=== PATIENT | male | born 1990 | race Caucasian/White ===

== ENCOUNTER 2019-08-20 06:28 | Emergency (ER) | payer SELFPAY ==
[~2019-08-20] VITALS: Ht 170.2 cm; Wt 87.5 kg
[2019-08-20 06:59] VITALS: BP_SYST 139
--- NOTE | 2019-08-20 07:00 | NUR ---
Placed in room 3 . Placed on monitoring specialist, blood pressure machine and pulse oximeter. To gown for exam. Side rails up. Assumed care.
--- NOTE | 2019-08-20 07:15 | NUR ---
Patient arrived via POV, AAOx4, and ambulatory with hunched gait. Patient accompanied by . Patient states when waking up approximately 0600, he had sudden onset of RLQ pain and intense nausea. No episodes of vomiting, dry heaving. Patient notes no changes in bowel habits, recent illness, chest pain. Patient states pain is sharp and constant to RLQ, worse with movement, less with placing hand at site of pain, and applying pressure. Patient states he has not had his appendix removed, or gallbladder removed. Patient notes no recent injury or muscle pulling. No history of kidney stones. Patient states episode of testicular pulling sensation. Will continue to follow up and monitor.
--- NOTE | 2019-08-20 07:40 | NUR ---
ER at bedside examining patient.
[2019-08-20] MEDS ORDERED: KETOROLAC TROMETHAMINE 30 MG VIAL IVP ONE (07:45)
[2019-08-20] MEDS ORDERED: NACL 0.9% 1,000 ML IV ONE (07:45)
[2019-08-20] MEDS ORDERED: MORPHINE 4 MG/ML INJ. SYRINGE IVP ONE (07:45)
[2019-08-20] MEDS ORDERED: ONDANSETRON HCL 4 MG/2 ML VIAL IVP ONE (07:45)
[2019-08-20 07:56] LABS: BASOPHILS % (AUTO) 0.5 % (0.0-2.0); EOSINOPHILS # (AUTO) 0.5 K/uL (0.0-0.4); EOSINOPHILS % (AUTO) 4.5 % (0.0-4.0); HEMATOCRIT 45.5 % (36-54); HEMOGLOBIN 15.7 g/dL (14.0-18.0); LYMPHOCYTES # (AUTO) 4.1 K/uL (1.0-5.5); LYMPHOCYTES % (AUTO) 39.7 % (20.5-51.5); MEAN CORPUSCULAR HEMOGLOBIN 31 pg (27-31); MEAN CORPUSCULAR HGB CONC 35 % (32-36); MEAN CORPUSCULAR VOLUME 89 fL (79.0-98.0); MONOCYTES # (AUTO) 0.6 K/uL (0.0-1.0); MONOCYTES % (AUTO) 5.9 % (1.7-9.3); NEUTROPHILS # (AUTO) 5.1 K/uL (1.8-7.7); NEUTROPHILS % (AUTO) 49.4 % (40.0-70.0); PLATELET COUNT (AUTO) 281 K/uL (130-430); RED BLOOD CELL COUNT(AUTO) 5.14 MIL/uL (4.2-6.2); RED CELL DISTRIBUTION WIDTH 13.1 % (9.0-15.0); WHITE BLOOD COUNT (AUTO) 10.2 K/uL (4.8-10.8)
[2019-08-20 08:01] LABS: CALCIUM 8.8 mg/dL (8.4-11.0); CREATININE 1.23 mg/dL (0.55-1.30); POTASSIUM 3.4 mmol/L (3.5-5.1)
[2019-08-20 08:05] LABS: ALBUMIN 4.2 g/dL (3.4-4.8); TOTAL BILIRUBIN 1.1 mg/dL (0.0-1.0)
--- NOTE | 2019-08-20 08:30 | NUR ---
Patient returned from CT scan via wheelchair. Patient states pain was almost completely gone prior to CT, but when he lifted his arms. MD made aware of returning pain.
--- NOTE | 2019-08-20 10:15 | NUR ---
Patient resting comfortably, aware we are waiting for results and MD to follow up regarding results.
[2019-08-20 11:20] VITALS: BP_SYST 112
--- NOTE | 2019-08-20 11:20 | NUR ---
Patient given written and verbal discharge instructions and verbalizes understanding. ER MD discussed with patient the results and treatment provided. Patient in stable condition. ID arm band removed. IV catheter removed intact and dressing applied, no active bleeding. Rx of Motrin, [place] 5-325, Zofran given. Patient educated on pain management and to follow up with PMD. Pain Scale 5/10. Opportunity for questions provided and answered. Medication side effect fact sheet provided.
== END 2019-08-20 11:20 | disposition home or self-care (01) ==
LOC: SED 06:28
DX: N13.2 Hydronephrosis with renal and ureteral calculous obstruction (principal); R11.2 Nausea with vomiting, unspecified; Z91.013 Allergy to seafood
CPT/HCPCS: 36415; 74176; 80053; 81002; 83690; 85025; 96361; 96374; 96375; 99284; J1885; J2270; J2405; J7030

== ENCOUNTER 2021-10-26 08:35 | Emergency (ER) | payer OTHER, SELFPAY ==
[~2021-10-26] VITALS: Ht 170.2 cm; Wt 99.8 kg
[2021-10-26 08:40] VITALS: BP_SYST 108
--- NOTE | 2021-10-26 08:40 | NUR ---
PT TRAIGED AND PLACED IN WAITING ROOM FOR AVAILABLE BED
--- NOTE | 2021-10-26 08:42 | NUR ---
PT BIB FROM HOME, C/O LEFT SIDED TESTICULAR PAIN STARTING AROUND 0630 AFTER HAVING A BM. PT REPORTS THEN FEELING A STRONG URGE TO VOID BUT WAS UNABLE TO. REPORTS HX OF KIDNEY STONES. PT IS AMBULATORY, AAOX4, VSS
--- NOTE | 2021-10-26 08:55 | NUR ---
ER DR. ARRIOLA EXAMINING PT
[2021-10-26] MEDS ORDERED: KETOROLAC TROMETHAMINE 60 MG/2 ML VIAL IM ONE (09:00)
[2021-10-26] MEDS ORDERED: HYDROmorphone 1 MG/ML INJ. CARTRIDGE IVP ONE ×2 (09:00→10:00)
[2021-10-26] MEDS ORDERED: NACL 0.9% 1,000 ML IV ONE ×2 (09:00→10:15)
--- NOTE | 2021-10-26 09:08 | NUR ---
# 20 gauge angiocath placed to RAC. Use of asceptic technique. Opsite placed over site. Blood return noted. Blood for lab drawn from site. Flushed with 10 cc of normal saline. No evidence of infiltration noted. Patient tolerated well.
[2021-10-26] MEDS ORDERED: KETOROLAC TROMETHAMINE 30 MG VIAL ONE (09:10)
[2021-10-26] MEDS ORDERED: ONDANSETRON HCL 4 MG/2 ML VIAL IVP ONE ×2 (09:15→10:15)
[2021-10-26] MEDS ORDERED: KETOROLAC TROMETHAMINE 30 MG VIAL IVP ONE (09:15)
--- NOTE | 2021-10-26 09:15 | NUR ---
Patient transported to radiology via WC, accompanied by STAFF.
[2021-10-26] MEDS ORDERED: OXYC-128 PO (10:01)
[2021-10-26] MEDS ORDERED: ONDA-8 TL (10:05)
[2021-10-26] MEDS ORDERED: IBUP-1969 PO (10:05)
[2021-10-26] MEDS ORDERED: fentaNYL CITRATE/PF 100 MCG/2 ML AMP IVP ONE (10:15)
[2021-10-26 10:33] LABS: BASOPHILS % (AUTO) 0.3 % (0.0-2.0); EOSINOPHILS # (AUTO) 0.5 K/uL (0.0-0.4); EOSINOPHILS % (AUTO) 5.6 % (0.0-4.0); HEMATOCRIT 45.2 % (36-54); HEMOGLOBIN 15.4 g/dL (14.0-18.0); LYMPHOCYTES # (AUTO) 3.6 K/uL (1.0-5.5); LYMPHOCYTES % (AUTO) 37.3 % (20.5-51.5); MEAN CORPUSCULAR HEMOGLOBIN 29 pg (27-31); MEAN CORPUSCULAR HGB CONC 34 % (32-36); MEAN CORPUSCULAR VOLUME 86 fL (79.0-98.0); MONOCYTES # (AUTO) 0.6 K/uL (0.0-1.0); MONOCYTES % (AUTO) 6.3 % (1.7-9.3); NEUTROPHILS # (AUTO) 4.9 K/uL (1.8-7.7); NEUTROPHILS % (AUTO) 50.5 % (40.0-70.0); PLATELET COUNT (AUTO) 279 K/uL (130-430); RED BLOOD CELL COUNT(AUTO) 5.25 MIL/uL (4.2-6.2); WHITE BLOOD COUNT (AUTO) 9.8 K/uL (4.8-10.8)
[2021-10-26 10:38] LABS: CALCIUM 8.8 mg/dL (8.4-11.0); CREATININE 1.11 mg/dL (0.55-1.30); POTASSIUM 3.5 mmol/L (3.5-5.1)
[2021-10-26 10:42] LABS: ALBUMIN 3.9 g/dL (3.4-4.8)
--- NOTE | 2021-10-26 11:30 | NUR ---
PT ABLE TO VOID, SPECIMEN COLLECTED AND SENT TO LAB
[2021-10-26 11:42] LABS: BILIRUBIN,URINE NEGATIVE (NEGATIVE); BLOOD, URINE 3+ (NEGATIVE); CLARITY/URINE TURBID (CLEAR); GLUCOSE,URINE NEGATIVE (NEGATIVE); KETONES,URINE NEGATIVE (NEGATIVE); LEUKOCYTE ESTERASE ,URINE NEGATIVE (NEGATIVE); NITRITE, URINE NEGATIVE (NEGATIVE); PH,URINE 5.5 (5.0-8.0); PROTEIN URINE 2+ (NEGATIVE); UROBILINOGEN,URINE 0.2 (0.2-1.0)
[2021-10-26 12:25] LABS: COLOR,URINE BROWN (YELLOW)
[2021-10-26 12:32] LABS: BACTERIA,URINE FEW /HPF (None Seen); MUCUS,URINE 1+ /LPF (None Seen); RBC,URINE 50-80 /HPF (0-3); WBC,URINE 0-3 /HPF (0-3)
[2021-10-26 12:50] VITALS: BP_SYST 112
--- NOTE | 2021-10-26 12:50 | NUR ---
Patient given written and verbal discharge instructions and verbalizes understanding. ER MD discussed with patient the results and treatment provided. Patient in stable condition. ID arm band removed. IV catheter removed intact and dressing applied, no active bleeding. Rx of IBUPROFEN, ZOFRAN AND PERCOCET given. Patient educated on pain management and to follow up with PMD. Pain Scale 0/10. Opportunity for questions provided and answered. Medication side effect fact sheet provided.
== END 2021-10-26 12:50 | disposition home or self-care (01) ==
LOC: SED 08:35
DX: N20.1 Calculus of ureter (principal); Z91.013 Allergy to seafood; Z79.899 Other long term (current) drug therapy
CPT/HCPCS: 36415; 74176; 76376; 80053; 81000; 85025; 96361; 96374; 96375; 99284; J1170; J1885; J2405; J3010; J7030